=== PATIENT | male | born 1955 | race Two or more races ===

== ENCOUNTER 2018-01-15 15:15 | Inpatient (IN) | payer SELFPAY ==
[~2018-01-15] VITALS: Ht 185.4 cm; Wt 103.9 kg
[2018-01-15] MEDS ORDERED: ONDANSETRON HCL 4MG/2ML VIAL IV STA (15:22)
[2018-01-15] MEDS ORDERED: SODIUM CHLORIDE 0.9% 1,000 ML IV ONE (15:22)
[2018-01-15] MEDS ORDERED: TETANUS, DIPHTHERIA, PERTUSSIS VAC/PF 0.5ML (>7YR OLD) IM ONE (16:00)
[2018-01-15] MEDS ORDERED: BACITRACIN ZINC OINT UDPKT TOP ONE (16:00)
[2018-01-15 16:14] LABS: CHLORIDE 109 mEq/L (98-107)
[2018-01-15 16:15] LABS: BASOPHILS % 0.3 % (0.0-2.0); EOSINOPHILS % 1.5 % (0.0-5.0); HEMATOCRIT. 39.9 % (42.0-52.0); HEMOGLOBIN. 12.9 g/dL (14.0-18.0); LYMPHOCYTES % 29.7 % (20.0-50.0); MEAN CORPUSCULAR HEMOGLOBIN 23.8 pg (28.0-32.0); MEAN CORPUSCULAR VOLUME 73.4 fL (80.0-94.0); MEAN PLATELET VOLUME 8.8 fl (7.4-10.4); MONOCYTES % 8.2 % (2.0-8.0); NEUTROPHILS % 60.3 % (40.0-76.0); PLATELET 251 x1000/uL (130-400); RED BLOOD CELL COUNT 5.43 mill/uL (4.7-6.1); RED CELL DISTRIBUTION WIDTH 16.6 % (11.6-14.6)
[2018-01-15 16:18] LABS: ETHANOL BLOOD < 10 mg/dL
[2018-01-15 16:23] LABS: AMMONIA 17 uMol/L (<32); CREATINE KINASE 355 IU/L (39-308)
[2018-01-15 16:34] LABS: CARBAMAZEPINE < 0.5 ug/mL (4-12); PHENOBARBITAL < 2.1 ug/mL (15.0-40.0); VALPROIC ACID < 3.0 ug/mL (50-100)
[2018-01-15] MEDS ORDERED: LIDOCAINE 1%/EPI 1:100,000 10 ML VIAL IJ ONE (18:30)
[2018-01-15] MEDS ORDERED: KETOROLAC 15MG/ML VIAL IV ONE (20:15)
[2018-01-15] MEDS ORDERED: MORPHINE SULFATE 4 MG/ML CPJ (NOT FOR IM USE) IV ONE (20:15)
[2018-01-15] MEDS ORDERED: ONDANSETRON HCL 4MG/2ML VIAL IV ONE (20:15)
[2018-01-15 21:07] LABS: CLARITY URINE CLEAR (CLEAR); COLOR URINE YELLOW (YELLOW); KETONES URINE TRACE (NEGATIVE); LEUKOCYTE ESTERASE URINE NEGATIVE (NEGATIVE); NITRITE URINE NEGATIVE (NEGATIVE); OCCULT BLOOD URINE 3+ (NEGATIVE); PH URINE 5.5 (4.5-8.0); PROTEIN URINE NEGATIVE (NEGATIVE); SPECIFIC GRAVITY URINE 1.021 (1.005-1.030); UROBILINOGEN URINE 0.2 E.U./dL (0.2-1.0)
[2018-01-15 21:17] LABS: *AMPHETAMINES SCREEN URINE NEGATIVE (NEGATIVE); *BARBITURATES SCREEN URINE NEGATIVE (NEGATIVE); *BENZODIAZEPINES SCREEN URINE NEGATIVE (NEGATIVE); *COCAINE SCREEN URINE NEGATIVE (NEGATIVE)
[2018-01-15 21:18] LABS: CANNABINOID URINE SCREEN PRESUMTIVE POSITIVE (NEGATIVE); METHADONE URINE SCREEN NEGATIVE (NEGATIVE); OPIATES URINE SCREEN NEGATIVE (NEGATIVE); PHENCYCLIDINE URINE SCREEN NEGATIVE (NEGATIVE)
[2018-01-16] MEDS ORDERED: DIPHENHYDRAMINE 50MG/ML VIAL IV PRN
[2018-01-16] MEDS ORDERED: MAGNESIUM/ALUMINUM HYDROXIDE/SIMETHICONE 30ML UDC PO PRN
[2018-01-16] MEDS ORDERED: CLONIDINE 0.1MG TABLET PO PRN
[2018-01-16] MEDS ORDERED: ACETAMINOPHEN 325MG TABLET PO PRN
[2018-01-16] MEDS ORDERED: ONDANSETRON HCL 4MG/2ML VIAL IV PRN
[2018-01-16] MEDS ORDERED: ACETAMINOPHEN WITH CODEINE 300/30MG TABLET PO PRN
[2018-01-16 00:30] VITALS: BP 152/80
[2018-01-16] MEDS: SODIUM CHL 0.45% + KCL 20MEQ/L 1,000 ML IV SCH ×2 (01:55→09:28)
[2018-01-16 04:00] VITALS: BP 121/72
[2018-01-16 07:01] LABS: BASOPHILS % 0.2 % (0.0-2.0); EOSINOPHILS % 0.7 % (0.0-5.0); HEMATOCRIT. 37.2 % (42.0-52.0); HEMOGLOBIN. 12.1 g/dL (14.0-18.0); LYMPHOCYTES % 12.9 % (20.0-50.0); MEAN CORPUSCULAR HEMOGLOBIN 23.7 pg (28.0-32.0); MEAN PLATELET VOLUME 8.2 fl (7.4-10.4); MONOCYTES % 6.3 % (2.0-8.0); NEUTROPHILS % 79.9 % (40.0-76.0); PLATELET 241 x1000/uL (130-400); RED BLOOD CELL COUNT 5.09 mill/uL (4.7-6.1); RED CELL DISTRIBUTION WIDTH 16.1 % (11.6-14.6)
[2018-01-16 07:13] LABS: CHLORIDE 109 mEq/L (98-107)
[2018-01-16 08:00] VITALS: BP 150/81
[2018-01-16 12:00] VITALS: BP 164/98
[2018-01-16] MEDS ORDERED: LISI40TA4 MT (14:34)
[2018-01-16] MEDS ORDERED: DOXA1TAB2 PO (14:34)
[2018-01-16] MEDS ORDERED: SIMV10TA6 MT (14:34)
[2018-01-16] MEDS ORDERED: LEVOFLOXACIN 500MG TABLET PO NR (15:15)
[2018-01-16 16:00] VITALS: BP 127/73
[2018-01-16] MEDS ORDERED: NEO/POLYMYX B SULF/DEXAMETH 0.1% OPHTH SUSP 5ML LEFTEYE SCH (18:00)
[2018-01-16] MEDS ORDERED: NEOMYCIN/POLYMYXN B/GRAMICIDIN OPHTH DROPS 10ML LEFTEYE SCH ×2 (18:00)
== END 2018-01-16 17:05 | disposition home or self-care (01) | DRG 469 ==
LOC: ER 15:15 → 5WST 18:00 → ENRESERV 22:53
PROVIDERS: ADMIT Internal Medicine; ATTEND Internal Medicine
PROC: 0HQ1XZZ Repair Face Skin, External Approach (ICD-10-PCS; principal; 2018-01-15)
DX: N17.9 Acute kidney failure, unspecified (principal); G93.40 Encephalopathy, unspecified; E87.0 Hyperosmolality and hypernatremia; G90.8 Other disorders of autonomic nervous system; S01.111A Laceration without foreign body of right eyelid and periocular area, initial encounter; I12.9 Hypertensive chronic kidney disease with stage 1 through stage 4 chronic kidney disease, or unspecified chronic kidney disease; N18.9 Chronic kidney disease, unspecified; E87.6 Hypokalemia; N40.0 Benign prostatic hyperplasia without lower urinary tract symptoms; Z60.2 Problems related to living alone; Z72.0 Tobacco use; W18.39XA Other fall on same level, initial encounter; Y93.89 Activity, other specified; Y92.89 Other specified places as the place of occurrence of the external cause; Y99.8 Other external cause status; Z87.81 Personal history of (healed) traumatic fracture
CPT/HCPCS: 36415; 70450; 71045; 80048; 80053; 80156; 80165; 80184; 80185; 80305; 81003; 82140; 82550; 83735; 83880; 84443; 85025; 90715; 93005; 96361; 96372; 96374; 99285; G0482; J1885; J2270; J2405; J3480; J3490; J7030

== ENCOUNTER 2018-01-16 21:23 | Inpatient (IN) | payer SELFPAY ==
[~2018-01-16] VITALS: Ht 188 cm; Wt 115.7 kg
[~2018-01-16 21:23] MED LIST: DOXA1TAB2 PO; LISI40TA4 MT; SIMV10TA6 MT
[2018-01-16] MEDS ORDERED: ONDANSETRON HCL 4MG/2ML VIAL IV STA (21:50)
[2018-01-16] MEDS ORDERED: SODIUM CHLORIDE 0.9% 1,000 ML IV ONE (21:50)
[2018-01-16 23:18] LABS: BASOPHILS % 0.3 % (0.0-2.0); HEMATOCRIT. 38.5 % (42.0-52.0); HEMOGLOBIN. 12.4 g/dL (14.0-18.0); MEAN CORPUSCULAR HEMOGLOBIN 23.6 pg (28.0-32.0); MEAN CORPUSCULAR VOLUME 73.3 fL (80.0-94.0); MEAN PLATELET VOLUME 8.1 fl (7.4-10.4); MONOCYTES % 6.6 % (2.0-8.0); NEUTROPHILS % 70.1 % (40.0-76.0); PLATELET 244 x1000/uL (130-400); RED BLOOD CELL COUNT 5.25 mill/uL (4.7-6.1); RED CELL DISTRIBUTION WIDTH 16.4 % (11.6-14.6)
[2018-01-16 23:21] LABS: CHLORIDE 106 mEq/L (98-107)
[2018-01-16] MEDS: SODIUM CHLORIDE 0.9% 1,000 ML IV SCH ×2 (23:42→23:49)
[2018-01-17] VITALS (7 sets, daily range): BP systolic 124–167; BP diastolic 68–88
[2018-01-17] MEDS ORDERED: DOCUSATE SODIUM 100MG CAPSULE PO PRN
[2018-01-17] MEDS ORDERED: ACETAMINOPHEN 650MG/20.3ML UDC GT PRN
[2018-01-17] MEDS ORDERED: NA PHOS,M-B/NA PHOS,DI-BA ENEMA 118ML PR PRN
[2018-01-17] MEDS ORDERED: MAGNESIUM/ALUMINUM HYDROXIDE/SIMETHICONE 30ML UDC PO PRN
[2018-01-17] MEDS ORDERED: DIPHENHYDRAMINE 50MG/ML VIAL IV PRN
[2018-01-17] MEDS ORDERED: HYDROCODONE/ACETAMINOPHEN 10/325MG TABLET PO PRN
[2018-01-17] MEDS ORDERED: IPRATROPIUM/ALBUTEROL 0.5-3(2.5)MG/3ML NEB INH PRN
[2018-01-17] MEDS ORDERED: ACETAMINOPHEN 325MG TABLET PO PRN
[2018-01-17] MEDS ORDERED: CLONIDINE 0.1MG TABLET PO PRN
[2018-01-17] MEDS ORDERED: ONDANSETRON HCL 4MG/2ML VIAL IV PRN
[2018-01-17] MEDS ORDERED: ACETAMINOPHEN 650MG SUPP PR PRN
[2018-01-17] MEDS ORDERED: GUAIFENESIN 200MG/10ML SUGAR FREE UDC PO PRN
[2018-01-17] MEDS: HYDROCODONE/ACETAMINOPHEN 5/325MG TABLET PO PRN ×2 (01:55→20:29)
[2018-01-17] MEDS: MECLIZINE 25MG TABLET PO SCH ×3 (01:55→17:49)
[2018-01-17] MEDS ORDERED: SODIUM CHLORIDE 0.9% 1,000 ML IV SCH (02:00)
[2018-01-17 04:28] LABS: CLARITY URINE CLEAR (CLEAR); COLOR URINE YELLOW (YELLOW); KETONES URINE NEGATIVE (NEGATIVE); LEUKOCYTE ESTERASE URINE NEGATIVE (NEGATIVE); NITRITE URINE NEGATIVE (NEGATIVE); OCCULT BLOOD URINE 3+ (NEGATIVE); PROTEIN URINE NEGATIVE (NEGATIVE); SPECIFIC GRAVITY URINE 1.016 (1.005-1.030); UROBILINOGEN URINE 0.2 E.U./dL (0.2-1.0)
[2018-01-17] MEDS: SODIUM CHLORIDE 0.9% INJ 3ML FLUSH IVF SCH ×3 (05:34→20:34)
[2018-01-17 05:46] LABS: *AMPHETAMINES SCREEN URINE NEGATIVE (NEGATIVE); *BARBITURATES SCREEN URINE NEGATIVE (NEGATIVE); *BENZODIAZEPINES SCREEN URINE NEGATIVE (NEGATIVE); *COCAINE SCREEN URINE NEGATIVE (NEGATIVE)
[2018-01-17 05:47] LABS: METHADONE URINE SCREEN NEGATIVE (NEGATIVE); OPIATES URINE SCREEN PRESUMTIVE POSITIVE (NEGATIVE); PHENCYCLIDINE URINE SCREEN NEGATIVE (NEGATIVE)
[2018-01-17 05:50] LABS: CANNABINOID URINE SCREEN PRESUMTIVE POSITIVE (NEGATIVE)
[2018-01-17 07:11] LABS: BASOPHILS % 0.4 % (0.0-2.0); EOSINOPHILS % 1.7 % (0.0-5.0); HEMATOCRIT. 35.5 % (42.0-52.0); HEMOGLOBIN. 11.6 g/dL (14.0-18.0); LYMPHOCYTES % 22.4 % (20.0-50.0); MEAN CORPUSCULAR HEMOGLOBIN 23.8 pg (28.0-32.0); MEAN CORPUSCULAR VOLUME 72.8 fL (80.0-94.0); MEAN PLATELET VOLUME 8.3 fl (7.4-10.4); MONOCYTES % 7.1 % (2.0-8.0); NEUTROPHILS % 68.4 % (40.0-76.0); PLATELET 230 x1000/uL (130-400); RED BLOOD CELL COUNT 4.88 mill/uL (4.7-6.1); RED CELL DISTRIBUTION WIDTH 16.2 % (11.6-14.6)
[2018-01-17 07:24] LABS: CHLORIDE 108 mEq/L (98-107)
[2018-01-17 07:35] LABS: CREATINE KINASE 341 IU/L (39-308)
[2018-01-17 07:36] LABS: HDL CHOLESTEROL 52 mg/dL (40-59)
[2018-01-17 07:37] LABS: LDL CHOLESTEROL 35 mg/dL (5-100)
[2018-01-17 07:41] LABS: CREATINE KINASE MB FRACTION 1.5 ng/mL (0.5-3.6)
[2018-01-17] MEDS ORDERED: PNEUMOCOCCAL 23-VAL P-SAC VAC 0.5 ML IM ONE (10:00)
[2018-01-17] MEDS ORDERED: MECLIZINE 25MG TABLET PO SCH (11:15)
[2018-01-17] MEDS: AMLODIPINE 2.5MG TABLET PO SCH ×2 (13:02→21:00)
[2018-01-17] MEDS: POLYVINYL ALCOHOL OPHTH DROPS 15ML BOTHEYE SCH ×2 (13:03→17:48)
[2018-01-17 15:18] LABS: CREATINE KINASE 374 IU/L (39-308); CREATINE KINASE MB FRACTION 1.6 ng/mL (0.5-3.6)
[2018-01-17] MEDS: BACITRACIN ZINC 15GM TUBE TOP SCH (20:34)
[2018-01-18] VITALS: BP 158/96
[2018-01-18] MEDS: MECLIZINE 25MG TABLET PO SCH ×3 (00:34→19:06)
[2018-01-18] MEDS: POLYVINYL ALCOHOL OPHTH DROPS 15ML BOTHEYE SCH ×4 (00:35→19:06)
[2018-01-18 04:00] VITALS: BP 113/61
[2018-01-18] MEDS: SODIUM CHLORIDE 0.9% INJ 3ML FLUSH IVF SCH ×3 (06:10→21:31)
[2018-01-18 07:40] LABS: BASOPHILS % 0.5 % (0.0-2.0); EOSINOPHILS % 2.9 % (0.0-5.0); HEMATOCRIT. 40.8 % (42.0-52.0); HEMOGLOBIN. 13.3 g/dL (14.0-18.0); LYMPHOCYTES % 26.6 % (20.0-50.0); MEAN CORPUSCULAR HEMOGLOBIN 23.6 pg (28.0-32.0); MEAN CORPUSCULAR VOLUME 72.5 fL (80.0-94.0); MONOCYTES % 8.7 % (2.0-8.0); NEUTROPHILS % 61.3 % (40.0-76.0); PLATELET 232 x1000/uL (130-400); RED BLOOD CELL COUNT 5.63 mill/uL (4.7-6.1); RED CELL DISTRIBUTION WIDTH 16.1 % (11.6-14.6)
[2018-01-18 07:59] LABS: CHLORIDE 106 mEq/L (98-107)
[2018-01-18 08:00] VITALS: BP 134/81
[2018-01-18 08:10] LABS: LDL CHOLESTEROL 46 mg/dL (5-100)
[2018-01-18 08:12] LABS: CREATINE KINASE 713 IU/L (39-308); CREATINE KINASE MB FRACTION 1.1 ng/mL (0.5-3.6); HDL CHOLESTEROL 57 mg/dL (40-59)
[2018-01-18] MEDS: BACITRACIN ZINC 15GM TUBE TOP SCH (09:22)
[2018-01-18] MEDS: AMLODIPINE 2.5MG TABLET PO SCH ×2 (09:22→21:30)
[2018-01-18] MEDS ORDERED: REGADENOSON 0.4 MG/5 ML IV NR (11:16)
[2018-01-18 11:59] VITALS: BP 141/81
[2018-01-18 15:56] VITALS: BP 148/76
[2018-01-18] MEDS ORDERED: MEDICATION NOT ON FORMULARY EA (Doxazosin Mesylate 1 MG) PO PRN (16:00)
[2018-01-18] MEDS ORDERED: DOXAZOSIN MESYLATE 2MG TABLET PO PRN (17:15)
[2018-01-18 20:00] VITALS: BP_SYST 138; BP_SYST 148; BP_SYST 154; BP_DIAS 82; BP_DIAS 83; BP_DIAS 91
[2018-01-18] MEDS ORDERED: MEDICATION NOT ON FORMULARY EA (Simvastatin 1 TAB) MT SCH (21:00)
[2018-01-18] MEDS ORDERED: ATORVASTATIN CALCIUM 10MG TABLET PO SCH (21:00)
[2018-01-18] MEDS: NEOMY SULF/BACITRAC ZN/POLY OINT 28GM TOP SCH (21:31)
[2018-01-19] VITALS: BP 140/81
[2018-01-19] MEDS: POLYVINYL ALCOHOL OPHTH DROPS 15ML BOTHEYE SCH ×3 (00:24→13:08)
[2018-01-19] MEDS: MECLIZINE 25MG TABLET PO SCH ×2 (02:00→10:57)
[2018-01-19 04:00] VITALS: BP 116/72
[2018-01-19] MEDS: SODIUM CHLORIDE 0.9% INJ 3ML FLUSH IVF SCH ×2 (06:47→13:09)
[2018-01-19 07:32] LABS: BASOPHILS % 0.5 % (0.0-2.0); EOSINOPHILS % 2.9 % (0.0-5.0); HEMOGLOBIN. 13.2 g/dL (14.0-18.0); LYMPHOCYTES % 24.2 % (20.0-50.0); MEAN CORPUSCULAR HEMOGLOBIN 23.8 pg (28.0-32.0); MEAN CORPUSCULAR VOLUME 71.9 fL (80.0-94.0); MEAN PLATELET VOLUME 8.1 fl (7.4-10.4); MONOCYTES % 8.7 % (2.0-8.0); NEUTROPHILS % 63.7 % (40.0-76.0); PLATELET 258 x1000/uL (130-400); RED BLOOD CELL COUNT 5.56 mill/uL (4.7-6.1); RED CELL DISTRIBUTION WIDTH 15.5 % (11.6-14.6)
[2018-01-19 07:46] LABS: CHLORIDE 104 mEq/L (98-107)
[2018-01-19 08:00] VITALS: BP 148/76
[2018-01-19] MEDS ORDERED: REGADENOSON 0.4 MG/5 ML IV ONE (08:43)
[2018-01-19] MEDS: NEOMY SULF/BACITRAC ZN/POLY OINT 28GM TOP SCH (10:58)
[2018-01-19] MEDS: AMLODIPINE 2.5MG TABLET PO SCH (10:58)
[2018-01-19] MEDS ORDERED: POTASSIUM CHLORIDE 20MEQ TABLET SR PO SCH (11:15)
[2018-01-19] MEDS ORDERED: MAGNESIUM CITRATE 300ML SOLUTION PO NR (11:30)
[2018-01-19 12:00] VITALS: BP 121/88
[2018-01-19 16:00] VITALS: BP 121/88
[2018-01-19 18:04] VITALS: BP 130/91
[2018-01-19] MEDS ORDERED: AMLODIPINE 5MG TABLET PO SCH (21:00)
== END 2018-01-19 18:57 | disposition home or self-care (01) | DRG 48 ==
LOC: ER 22:16 → 5WST 23:36 → ENRESERV 23:51
PROVIDERS: ADMIT Family Medicine; ATTEND Family Medicine
PROC: 0HQ1XZZ Repair Face Skin, External Approach (ICD-10-PCS; principal; 2018-01-18)
DX: G90.8 Other disorders of autonomic nervous system (principal); E78.00 Pure hypercholesterolemia, unspecified; S01.111A Laceration without foreign body of right eyelid and periocular area, initial encounter; S01.01XA Laceration without foreign body of scalp, initial encounter; E78.5 Hyperlipidemia, unspecified; F17.210 Nicotine dependence, cigarettes, uncomplicated; I10 Essential (primary) hypertension; R00.1 Bradycardia, unspecified; W19.XXXA Unspecified fall, initial encounter; N40.0 Benign prostatic hyperplasia without lower urinary tract symptoms; Z79.899 Other long term (current) drug therapy; Y93.89 Activity, other specified; Y92.89 Other specified places as the place of occurrence of the external cause; Y99.8 Other external cause status; Z91.013 Allergy to seafood; Z91.041 Radiographic dye allergy status
CPT/HCPCS: 36415; 70450; 70551; 78452; 80053; 80061; 80305; 81003; 82550; 82553; 83036; 83605; 83735; 83880; 84443; 84484; 85025; 85379; 90732; 93005; 93017; 93306; 93880; 93970; 93971; 96361; 96372; 96374; 97162; 99285; A9500; J2405; J2785; J7030; J8597

== ENCOUNTER 2018-01-26 09:33 | Emergency (ER) | payer SELFPAY ==
[~2018-01-26] VITALS: Ht 185.4 cm; Wt 107.0 kg
[2018-01-26 09:51] VITALS: BP 137/78
== END 2018-01-26 10:51 | disposition home or self-care (01) ==
LOC: ER 09:53
DX: S01.111D Laceration without foreign body of right eyelid and periocular area, subsequent encounter (principal); I51.9 Heart disease, unspecified; I10 Essential (primary) hypertension; Z91.013 Allergy to seafood; Z79.899 Other long term (current) drug therapy; X58.XXXD Exposure to other specified factors, subsequent encounter
CPT/HCPCS: 99282